=== PATIENT | male | born 1960 | race Caucasian/White ===

== ENCOUNTER 2025-02-28 19:09 | Emergency (ER) | payer SELFPAY ==
[2025-02-28 19:16] VITALS: BP 154/91; PULSE 116; RESP 16; TEMP 36.4; O2SAT 95
[2025-02-28 20:56] LABS: Hematocrit 46.2 % (37-53); Hemoglobin 16.00 g/dL (11.27-16.99); Mean Corpuscular HGB Conc 34.6 g/dL (30-55); Mean Corpuscular Hemoglobin 33.4 pg (27-33); Mean Corpuscular Volume 96.5 fl (82-101); Nucleated Red Blood Cells % 0 %; Platelet Count 257 10^3/cmm (157-399); Red Blood Count 4.79 10^6/uL (3.85-5.65); White Blood Count 4.60 10^3/uL (3.29-11.43)
[2025-02-28 21:39] LABS: Alanine Aminotransferase 101 U/L (0-41); Albumin Level 4.3 g/dL (3.5-5.2); Alcohol Level 49 mg/dL (0-10); Alkaline Phosphatase 135 U/L (40-130); Anion Gap 23.9 (5-19); Aspartate Amino Transferase 140 U/L (0-40); Blood Urea Nitrogen 7 mg/dL (8-23); Calcium 9.0 mg/dL (8.5-10.5); Carbon Dioxide 23 mmol/L (22-29); Chloride 92 mmol/L (98-107); Globulin 2.6 g/dL (1.3-4.6); Glucose 340 mg/dL (65-115); Lipase 91 U/L (13-60); Osmolality Calculated 291 mOsm/kg (285-295); Potassium 3.9 mmol/L (3.5-5.1); Sodium 135 mmol/L (136-145); Total Protein 6.9 g/dL (6.6-8.7)
--- NOTE | 2025-02-28 23:17 | W.ED.GENADLT ---
HPI - General Adult General: Chief complaint: General Medical Stated complaint: [employer] Time Seen by Provider: 02/28/25 23:06 History of Present Illness: Patient is a 62-year-old gentleman with history of alcoholism, relapsed 2 weeks ago. Patient had 2 years clean and sober. He has never had withdrawal seizures. He currently feels as if he has shaking to upper extremities, anxiety, and his heart racing. He states he has been drinking 1/5 a day for the last 2 weeks. Circumstances are associated with patient going back to [place] which triggered trauma. He moved here last June. Associated symptoms: Reports headache(s); Deny chest pain, nausea, palpitations or vomiting Related Data Previous Rx's ?Medication ?Instructions ?Recorded clonidine HCl 0.1 mg tablet 0.1 mg PO BID #30 tabs 03/01/25 methocarbamol 500 mg tablet 500 mg PO BID muscle spasm #30 tabs 03/01/25 Allergies Allergy/AdvReac Type Severity Reaction Status Date / Time No Known Allergies Allergy Verified 02/28/25 19:18 Review of Systems General: Reports: 10 or more systems reviewed and unremarkable except in HPI and below Const: Denies: fever(s) or chills Eyes: Denies: change in vision or blurry vision ENMT: Denies: throat pain Card: Denies: chest pain or palpitations Resp: Denies: wheezing GI: Denies: abdominal pain, nausea or vomiting : Denies: flank pain or difficulty urinating Musc: Denies: neck pain Neuro: Reports: headache(s); Denies: numbness in extremities, dizziness or vertigo Physical Exam Const: COMMON NORMALS: patient oriented x3 and alert ORIENTATION/CONSCIOUSNESS: Yes oriented to person, Yes oriented to place and Yes oriented to time HENMT: COMMON NORMALS: normocephalic and atraumatic HEAD & SCALP: normocephalic and atraumatic Eye: COMMON NORMALS: Equal, round and reactive pupils present and EOMs intact bilaterally PUPIL: Yes Equal, round and reactive pupils present Lymph: LYMPHATIC: no lymphadenopathy noted Resp: COMMON NORMALS: normal respiratory effort, No retractions and clear to auscultation bilaterally AUSCULTATION: clear to auscultation bilaterally Cardio: COMMON NORMALS: regular rate and regular rhythm RATE: regular rate RHYTHM: regular rhythm GI: COMMON NORMALS: Normal to inspection, nondistended, normoactive bowel sounds present, Soft to palpation and non-tender PALPATION: Yes Soft to palpation : COMMON NORMALS: Yes no CVA tenderness BLADDER/KIDNEY EXAM: Yes no CVA tenderness Back/Pelvis: COMMON NORMALS: no CVA tenderness Extremity: COMMON NORMALS: normal to inspection, full ROM and capillary refill normal Neuro: COMMON NORMALS: patient oriented x3, moves all extremities, no sensory deficits noted and gait normal SENSORIUM/ORIENTATION: Yes alert, Yes oriented to person, Yes oriented to place and Yes oriented to time COORDINATION/BALANCE: [id number] test normal SPEECH: speech normal MOTOR EXAM: 5/5 motor strength present throughout and no asterixis COORDINATION: [id number]-[id number] test normal OTHER: No unintentional shaking. Intentional shaking present at sporadic times. Psych: COMMON NORMALS: mental status grossly normal and Normal thought process present THOUGHT PROCESS: Normal thought process present Skin: COMMON NORMALS: no rashes or lesions noted and no wounds GENERAL SKIN EXAM: no rashes or lesions noted Course Vital Signs: Vital signs: Vital Signs Temperature 97.5 F L 02/28/25 19:16 Pulse Rate 116 H 02/28/25 19:16 Respiratory Rate 16 02/28/25 19:16 Blood Pressure 141/100 03/01/25 00:25 Pulse Oximetry 95 02/28/25 19:16 Oxygen Delivery Me thod Room Air 02/28/25 19:16 [facility] - General Adult Medical Decision Making Patient is a 64-year-old alcoholic that relapsed 2 weeks ago. He does not appear to be at risk for withdrawal seizures. He does have some intentional shaking after discussing it, however at rest and during conversation there are no shaking. He does have association tachycardia, and IV fluids, Ativan, B1, Norflex, Catapres will help with his mild withdrawal symptoms. Discussed with patient he will need to go to Alcoholics Anonymous or some type of rehab program where he is discussing his alcoholism on a daily basis. He states his infrastructure solutions architect is picking him up and he is going to charge Wednesdays, Sundays, and will join additional programs and continue with a sponsor. Medical Records I reviewed the patient's medical records. Lab Data I reviewed the patient's lab results. 02/28/25 20:42 02/28/25 20:42 Laboratory Results WBC 4.60 10^3/uL (3.29-11.43) 02/28/25 20: RBC 4.79 10^6/uL (3.85-5.65) 02/28/25 20:42 Hgb 16.00 g/dL (11.27-16.99) 02/28/25 20:42 Hct 46.2 % (37-53) 02/28/25 20:42 MCV 96.5 fl (82-101) 02/28/25 20: MCH 33.4 pg (27-33) H 02/28/25 20:42 MCHC 34.6 g/dL (30-55) 02/28/25 20: RDW 14.1 % (12.1-15.1) 02/28/25 20: Plt Count 257 10^3/cmm (157-399) 02/28/25 20: MPV 9.5 fL (7.4-10.4) 02/28/25 20:42 Neut % (Auto) 66.6 % 02/28/25 20:42 Lymph % (Auto) 16.5 % 02/28/25 20:42 [place] % (Auto) 14.1 % 02/28/25 20:42 Eos % (Auto) 0.9 % 02/28/25 20: Baso % (Auto) 1.5 % 02/28/25 20: Neut # (Auto) 3.06 10^3/uL (1.8-7.7) 02/28/25 20: Lymph # (Auto) 0.8 10^3/uL (0.8-4.8) 02/28/25 20:42 [place] # (Auto) 0.7 10^3/uL (0.2-0.9) 02/28/25 20:42 Eos # (Auto) 0.0 10^3/uL (0.0-0.8) 02/28/25 20: Baso # (Auto) 0.1 10^3/uL (0.0-0.1) 02/28/25 20:42 Nucleated RBC % (auto) 0 % 02/28/25 20: Nucleated RBCs # 0.0 /100WBC 02/28/25 20: Sodium 135 mmol/L (136-145) L 02/28/25 20:42 Potassium 3.9 mmol/L (3.5-5.1) 02/28/25 20:42 Chloride 92 mmol/L (98-107) L 02/28/25 20:42 Carbon Dioxide 23 mmol/L (22-29) 02/28/25 20:42 Anion Gap 23.9 (5-19) H 02/28/25 20:42 BUN 7 mg/dL (8-23) L 02/28/25 20:42 Creatinine 0.7 mg/dL (0.7-1.2) 02/28/25 20:42 GFR Calculation 114.3 mL/min (90-130) 02/28/25 20:42 Glucose 340 mg/dL (65-115) H 02/28/25 20:42 Calculated Osmolality 291 mOsm/kg (285-295) 02/28/25 20:42 Calcium 9.0 mg/dL (8.5-10.5) 02/28/25 20:42 Total Bilirubin 1.2 mg/dL (0.15-1.2) 02/28/25 20:42 AST 140 U/L (0-40) H 02/28/25 20:42 ALT 101 U/L (0-41) H 02/28/25 20:42 Alkaline Phosphatase 135 U/L (40-130) H 02/28/25 20:42 Total Protein 6.9 g/dL (6.6-8.7) 02/28/25 20:42 Albumin 4.3 g/dL (3.5-5.2) 02/28/25 20:42 Globulin 2.6 g/dL (1.3-4.6) 02/28/25 20:42 Lipase 91 U/L (13-60) H 02/28/25 20:42 Ethyl Alcohol 49 mg/dL (0-10) H 02/28/25 20:42 No radiology studies performed this visit Discharge Plan Discharge Patient Disposition: Home Clinical Impression: Abnormal transaminases, Hyperglycemia Alcohol withdrawal Qualifiers: Complication of substance-induced condition: uncomplicated Qualified Code(s): F10.930 - Alcohol use, unspecified with withdrawal, uncomplicated Condition: Stable Prescriptions: New clonidine HCl 0.1 mg tablet 0.1 mg PO BID Qty: 30 0RF methocarbamol 500 mg tablet 500 mg PO BID Qty: 30 0RF Discharge Orders: Discharge ED (Routine); Ordered 03/01/25 Ordered By: Delisa Garcia Discharge Diet: Usual diet Discharge Activity: Resume usual activity Patient Instructions: Alcohol Dependence (ED), Patient Portal & [facility] Instructions Activity Restrictions/Additional Instructions: Join a program that meets on a daily basis regarding your alcoholism. This can be done virtually. You need a sponsor to discuss these issues with daily. Continue with discussing with your infrastructure solutions architect. Start thiamine, also called B1 on a daily basis. Start multivitamin with folic acid on a daily basis. Take with food. Follow-up with your doctor regarding your elevated blood glucose, and elevated liver enzymes. You need to have your labs repeated. You may refer yourself to [facility] in [place] for inpatient and outpatient treatment. Eat a well-balanced diet. I am sorry you have relapsed on your disorder?alcoholism. Please give yourself more love, and do not drink alcohol. Alcohol is harmful to you, affects your gait, and personal relationships. I know you can stay clean and sober with the proper tools. Please continue to seek these tools as addressed above. Print Language: Romanian Coding Level of Care Code ED [employer] for [employer]
[2025-03-01] MEDS: orphenadrine 30 mg/mL Inj 2 mL IVP (00:24)
[2025-03-01] MEDS: LORazepam 1 MG/0.5 ML injection 2 MG IVP ×2 (00:24→01:31)
[2025-03-01] MEDS: thiamine 100 mg/mL 2mL SDV IVP (00:24)
[2025-03-01 00:25] VITALS: BP 141/100
[2025-03-01 03:00] VITALS: BP 112/88; PULSE 105; RESP 14; O2SAT 91
[2025-03-01 04:00] VITALS: BP 119/79; PULSE 95; RESP 14; O2SAT 92
[2025-03-01 05:00] VITALS: BP 105/74; PULSE 89; RESP 14; O2SAT 93
--- NOTE | 2025-03-01 06:04 | PC.NURSE ---
0230- pt noted to be lethargic 2ndary to medications given. pt allowed to sleep in bed at this time. pt in o obivous distress. VSS improved since arrival.
--- NOTE | 2025-03-01 06:04 | PC.NURSE ---
0430 - attempted to awake patient and received with groans and answer of yes. provider notified of lethargy 2ndary to medication and will allow to sleep a while longer. pt in o obivous distress. even unalbored respirations. vss.
[2025-03-01 07:08] VITALS: BP 134/110; PULSE 105; O2SAT 97
--- NOTE | 2025-03-02 12:08 | PC.NURSE ---
PCP referral in.
== END 2025-03-01 08:03 | disposition home or self-care (01) ==
PROVIDERS: Emergency Medicine; Emergency Provider Physician Assistant
DX: R74.01 Elevation of levels of liver transaminase levels (principal); F10.930 Alcohol use, unspecified with withdrawal, uncomplicated; Y90.2 Blood alcohol level of 40-59 mg/100 ml; R73.9 Hyperglycemia, unspecified
CPT/HCPCS: 36415; 80053; 80307; 83690; 85025; 96361; 96372; 96374; 96375; 96376; 99284; J2060; J2360; J3411; J3486; J7030; J9999

== ENCOUNTER → 2025-07-06 14:35 | Outpatient (BNVA) | payer BC, SELFPAY | PROVIDERS: Visit Provider Family Medicine Adult Medicine | DX: Z86.39 Personal history of other endocrine, nutritional and metabolic disease (principal) | CPT/HCPCS: 82962 ==

== ENCOUNTER → 2025-07-22 13:40 | Outpatient (BNVA) | payer BC, SELFPAY | PROVIDERS: PCP Family Medicine; Visit Provider Family Medicine | DX: E11.9 Type 2 diabetes mellitus without complications (principal); Z12.5 Encounter for screening for malignant neoplasm of prostate; Z13.6 Encounter for screening for cardiovascular disorders; R74.01 Elevation of levels of liver transaminase levels; F10.21 Alcohol dependence, in remission | CPT/HCPCS: 80053; 80061; 83036; 84153; 84439; 84443; 85025 ==